=== PATIENT | female | born 1990 | race Caucasian/White ===

== ENCOUNTER 2018-07-17 13:09 | Emergency (ER) | payer OTHER ==
[~2018-07-17] VITALS: Ht 182.8 cm; Wt 127.0 kg
[~2018-07-17 13:09] MED LIST: AMOXICILLIN500 MG PO; AUGMENTIN 875 M1 TAB PO; BIRTH CONTROL1 EAC1 PO; CLARITIN10 MG PO; CLINDAMYCIN HC300 MG PO; CYCLOBENZAPRINE10 MG PO; IBU800 MG PO; MEDROL DOSEPAK4 MG PO; METFORMIN500 MG PO; MOTRIN800 MG PO; NKHM PO; PERCOCET 325 MG1 TA7 PO
[2018-07-17 15:01] LABS: BASO % 0.2 % (0.0-1.0); EOS % 0.2 % (1.0-4.0); HEMATOCRIT 44.4 % (37.0-47.0); HEMOGLOBIN 14.9 g/dl (12.0-16.0); LYMPH # 0.7 10*3/uL (1.3-4.4); LYMPH % 6.4 % (27.0-41.0); MEAN CELL VOLUME 87.4 fl (81.0-99.0); MEAN CORPUSCULAR HGB 29.3 pg (27.0-31.0); MEAN CORPUSCULAR HGB CONC 33.6 g/dl (33.0-37.0); MEAN PLATELET VOLUME 11.1 fl (9.6-12.3); MONO # 0.5 10*3/uL (0.1-1.0); MONO % 4.5 % (3.0-9.0); NEUT # 9.2 10*3/uL (2.3-7.9); NEUT % 88.5 % (47.0-73.0); PLATELET COUNT AUTOMATED 226 10*3/uL (130-400); RED BLOOD COUNT 5.08 10*6/uL (4.10-5.10); RED CELL DISTRI WIDTH 12.8 % (0-14.5); WHITE BLOOD COUNT 10.4 10*3/uL (4.8-10.8)
[2018-07-17 15:16] LABS: ALBUMIN 4.4 gm/dl (3.1-4.5); ALKALINE PHOSPHATASE 50 U/L (45-117); BUN 13 mg/dl (7-24); CHLORIDE 106 mmol/L (98-107); CREATININE 0.93 mg/dL (0.55-1.02); POTASSIUM 3.6 mmol/L (3.5-5.1); SGOT/AST 55 IU/L (3-35); SGPT/ALT 69 U/L (12-78); SODIUM 140 mmol/L (136-145); TOTAL PROTEIN 8.7 gm/dL (6.4-8.2)
[2018-07-17 15:28] LABS: BILIRUBIN NEGATIVE (NEGATIVE); BLOOD NEGATIVE (NEGATIVE); CLARITY CLEAR (CLEAR); COLOR YELLOW (YELLOW); GLUCOSE NEGATIVE (NEGATIVE); KETONE TRACE (NEGATIVE); LEUKO ESTERASE NEGATIVE (NEGATIVE); NITRITE NEGATIVE (NEGATIVE); PH 8.5 (5.0-9.0); SPECIFIC GRAVITY 1.015 (1.005-1.030)
[2018-07-17 15:50] LABS: BACTERIA 2+
[2018-07-17 15:55] LABS: RBC 0-2 rbc/hpf (0-2)
[2018-07-17] MEDS ORDERED: Motrin,Rufen800 MG PO (19:56)
[2018-07-17] MEDS ORDERED: ZOFRAN4 MG PO (19:56)
[2018-07-17 20:05] VITALS: BP 128/82
[2018-07-18 22:05] LABS: GONOCOCCUS BY NAA Negative (Negative)
== END 2018-07-17 20:05 | disposition home or self-care (01) ==
LOC: ED 13:09
PROVIDERS: Physician Assistant
DX: R11.2 Nausea with vomiting, unspecified (principal); R19.7 Diarrhea, unspecified; R10.2 Pelvic and perineal pain; R10.30 Lower abdominal pain, unspecified; Z91.040 Latex allergy status